=== PATIENT | male | born 1965 | race Caucasian/White ===

== ENCOUNTER 2016-06-17 18:12 | Inpatient (IN) | payer MEDICAID, OTHER ==
[~2016-06-17] VITALS: Ht 188 cm; Wt 90.3 kg
[2016-06-17] MEDS: Piperacillin/Tazobactam 4.5 GM in NS 110 ML IVPB SCH ×3 (04:00→20:00)
[~2016-06-17 18:12] MED LIST: CARDURA1 MG ORAL; IBUPROFEN600 MG ORAL; KEFLEX500 MG ORAL; LORTAB 10-5001 EACH ORAL; NKM; NORCO 10/3251 EA ORAL; NORCO 5-325 TA1 EACH ORAL; VIBRAMYCIN100 MG ORAL
[2016-06-17] MEDS ORDERED: VALIUM5 MG ORAL (18:20)
[2016-06-17 18:30] VITALS: BP 121/60
[2016-06-17 18:43] LABS: APPEARANCE,URINE CLEAR; KETONES,URINE NEGATIVE (NEGATIVE); LEUKOCYTE ESTERASE ,URINE NEGATIVE (NEGATIVE); NITRITE,URINE NEGATIVE (NEGATIVE); PH,URINE 8 (4.5-8.0); PROTEIN,URINE NEGATIVE (NEGATIVE); UROBILINOGEN,URINE NORMAL MG/DL (0.0-1.0)
[2016-06-17 18:53] LABS: TROPONIN I < 0.30 ng/mL (<=0.30)
[2016-06-17 18:54] LABS: ALANINE AMINOTRANSFERASE 12 U/L (3-41); ALBUMIN/GLOBULIN RATIO 0.9 (1.0-2.7); ANION GAP 15 (5-15); ASPARTATE AMINO TRANSFERASE 15 U/L (5-40); CALCIUM 7.4 mg/dL (8.6-10.2); CARBON DIOXIDE 25 mEQ/L (20-30); CHLORIDE 95 mEQ/L (98-107); GLOMERULAR FILTRATION RATE > 60 mL/min (>60); HEMOLYSIS 8; SODIUM 135 mEQ/L (135-145); TOTAL PROTEIN 5.7 g/dL (6.6-8.7)
[2016-06-17 19:04] LABS: CKMB < 1.5 ng/mL (< 6.7)
--- NOTE | 2016-06-17 19:15 | Emergency Room Report ---
History of Present Illness General Chief Complaint: Generalized Weakness Source: Patient, Family Member Present Illness HPI 50 YOM with "cancer everywhere" presents with generalized weakness, fever to 101 and chills at home after 1st chemo tx a couple days ago. Denies chest pain , SOB, cough, abd pain, urinary complaints. Was told by oncologist to expect this, go to ER for fever/chills. Allergies: Coded Allergies: No Known Allergies (Unverified , 01/23/13) Patient History Past Medical History: other - cancer, unknown primary Past Surgical History: none Pertinent Family History: none Social History: Denies: alcohol use, drug use, smoking Immunizations: UTD Reviewed Nursing Documentation: PMH: Agreed, PSxH: Agreed Nursing Documentation-PMH Hx Cardiac Problems: No Hx Hypertension: No Hx Pacemaker: No Hx Asthma: No Hx COPD: No Hx Diabetes: No Hx Cancer: Yes - pancreas Hx Gastrointestinal Problems: No Hx Dialysis: No Hx Neurological Problems: No Hx Cerebrovascular Accident: No Hx Seizures: No Review of Systems All Other Systems: negative except mentioned in HPI Physical Exam Vital Signs Date Time Temp Pulse Resp B/P Pulse Ox O2 Delivery O2 Flow Rate FiO2 06/17/16 18:14 97.5 76 18 144/75 98 06/17/16 18:30 Room Air Sp02 EP Interpretation: reviewed, normal General Appearance: normal inspection, well appearing, no apparent distress, alert, GCS 15, non-toxic, lethargic, other - Very weak, tired Eyes: bilateral eye EOMI, bilateral eye PERRL ENT: normal ENT inspection, hearing grossly normal, normal voice Neck: normal inspection, full range of motion, supple, no bony tend Respiratory: normal inspection, lungs clear, normal breath sounds, no respiratory distress, no retraction, no wheezing, other - Right chest wall with chemo port; no sign of infection Cardiovascular #1: regular rate, rhythm, no edema Gastrointestinal: normal inspection, normal bowel sounds, non tender, soft, no guarding, no hernia Genitourinary: no CVA tenderness Musculoskeletal: normal inspection, back normal, normal range of motion, Ines' s Sign negative Neurologic: normal inspection, alert, oriented x3, responsive, procurement accountant III-XII nml as tested, motor strength/tone normal, speech normal Psychiatric: normal inspection, judgement/insight normal, mood/affect normal Skin: normal inspection, normal color, no rash Lymphatic: normal inspection Medical Decision Making Diagnostic Impression: Primary Impression: Episode of generalized weakness ER Course Labs: No leuks or neutropenia. H&h stable. CXR and UA: no obvious source of infection Blood Cx pending Empiric Abx given LR maintenance fluid started Concern for early neutropenic fever. Endorsed to Dr Parada at 738pm for med/surg admission for PANEL. EKG Diagnostic Results Rate: normal Rhythm: NSR ST Segments: no acute changes ASA given to the pt in ED: No Rhythm Strip Diag. Results EP Interpretation: yes Rate: 69 Rhythm: NSR, no PVC's, no ectopy Chest X-Ray Diagnostic Results EP Interpretation: Yes Findings: no consolidation, no effusion, no pneumothorax, no acute cardiopulmonary disease Number of Views: 1 Last Vital Signs Date Time Temp Pulse Resp B/P Pulse Ox O2 Delivery O2 Flow Rate FiO2 06/17/16 18:30 98.0 70 29 121/60 95 Room Air Status: improved Disposition: ADMITTED INPATIENT Condition: Serious Referrals: NON PHYSICIAN (PCP) DANIELLA PHILIPPE M.D. Jun 17, 2016 19:15
[2016-06-17 19:31] LABS: EOSINOPHILS % (AUTO) 1.2 % (0.0-3.0); LYMPHOCYTES % (AUTO) 25.3 % (20.0-45.0); MEAN CORPUSCULAR HEMOGLOBIN 27.7 PG (27.0-31.0); MEAN CORPUSCULAR HGB CONC 31.7 G/DL (32.0-36.0); MEAN CORPUSCULAR VOLUME 87 FL (80-99); MEAN PLATELET VOLUME 7.6 FL (6.5-10.1); MONOCYTES % (AUTO) 3.1 % (1.0-10.0); NEUTROPHILS % (AUTO) 69.5 % (45.0-75.0); PLATELET COUNT 267 K/UL (150-450); RED BLOOD COUNT 4.78 M/UL (4.70-6.10); RED CELL DISTRIBUTION WIDTH 12.3 % (11.6-14.8); WHITE BLOOD COUNT 5.7 K/UL (4.8-10.8)
[2016-06-17] MEDS ORDERED: Piperacillin/Tazobactam 3.375 GM in D5W 110 ML IVPB STA (19:34)
[2016-06-17] MEDS ORDERED: Vancomycin 1.5gm/D5W 300ml 325 ML IVPB ONE (19:45)
[2016-06-17] MEDS ORDERED: Zosyn 3.375gm inj ONE (19:51)
[2016-06-17] MEDS: LR 1000ml 1,000 ML IV SCH (19:58)
[2016-06-17 20:53] VITALS: BP 127/73
--- NOTE | 2016-06-17 21:54 | History & Physical ---
History and Physical History & Physicial H&P dictated [id number] CRISTINA LIZ M.D. Jun 17, 2016 21:54
[2016-06-17] MEDS ORDERED: DiphenhydrAMINE 50mg/ml Inj IVP PRN (22:00)
[2016-06-18] VITALS: BP 123/58
[2016-06-18] MEDS: Norco 10mg/325mg tab ORAL PRN ×2 (00:08→09:13)
[2016-06-18] MEDS: LR 1000ml 1,000 ML IV SCH (00:45)
[2016-06-18 04:00] VITALS: BP 102/62
[2016-06-18] MEDS ORDERED: Piperacillin/Tazobactam 4.5 GM in D5W 110 ML IVPB SCH ×3 (04:00)
[2016-06-18] MEDS ORDERED: Piperacillin/Tazobactam 4.5 GM in NS 110 ML IVPB SCH (04:00)
[2016-06-18] MEDS ORDERED: Zosyn 4.5gm inj ONE (04:30)
--- NOTE | 2016-06-18 05:49 | History and Physical Report ---
DATE OF ADMISSION: 06/17/2016 NOTE: POOR AUDIO QUALITY HISTORY OF PRESENT ILLNESS: This is an unfortunate 50-year-old male with history of metastatic esophageal cancer, which started chemotherapy three days ago, was brought into emergency room because of generalized weakness, fever 101 degrees as well as chills that started after his chemotherapy . He states he is very weak and has difficulty when standing. The patient needs max assist to stand. He up to his chemotherapy via which was placed three weeks ago. His oncologist is Dr. Grigsby [facility]. The patient denies any chest pain, shortness of breath, or cough. He does report lower back pain. 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 PAST SURGICAL HISTORY: None. MEDICATIONS: in [employer]. ALLERGIES: Motrin. SOCIAL HISTORY: The patient smokes one and half pack per day. Does not drink alcohol. Smokes marijuana. REVIEW OF SYSTEMS: Twelve-point review of systems is negative except for pertinent positives as mentioned above. PHYSICAL EXAMINATION: VITAL SIGNS: In the emergency room, temperature 97.5 degrees, pulse 76, respiratory rate 18, blood pressure 144/75, and pulse oximetry 98% on room air. GENERAL: No acute distress. The patient is very weak and lethargic. He seems chronically ill . HEENT: Normocephalic/atraumatic. NECK: Supple. No JVD. LUNGS: Clear to auscultation bilaterally. No crackles, rhonchi, or rales. Decreased breath sounds bilaterally. CARDIOVASCULAR: Regular rate and rhythm. Normal S1, S2. ABDOMEN: Soft, nontender, and nondistended. EXTREMITIES: No clubbing, cyanosis, or edema. NEUROLOGIC: The patient is very weak and has difficulty standing or sitting up in his chair. He does need to monitor the max assist. He is alert, awake, and oriented to time, person, and place. LABORATORY AND DIAGNOSTIC DATA: EKG shows normal sinus rhythm. No ST changes. Chest x-ray shows no consolidation, pneumothorax, or pneumonia. CBC, white count of 5.7, hemoglobin 13.3, and platelet count 257,000. BMP, sodium 135, potassium 4, chloride 95, CO2 25, BUN 26, and creatinine 1. Calcium 7.4. Alkaline phosphatase 143. Albumin 2.8. Troponin is less than 0.30. UA is negative. ASSESSMENT AND PLAN: 1. Systemic inflammatory response syndrome criteria. Temperature 101 degrees and respiratory rate of 29 of unclear source. 2. Differential diagnosis include, Port infection with bacteremia. 3. Upper respiratory infection, secondary to chemotherapy. 4. Protein malnutrition. PLAN: 1. Admit the patient to med/surg. 2. Blood cultures pending. UA is negative. 3. chest x-ray. 4. We will start empiric antibiotics with cefepime and vancomycin. 5. IV fluids. 6. Resume home medications. Anuj Parada MD DR: Dontae JOB#: [id number] CC:
[2016-06-18 07:15] LABS: BASOPHILS % (AUTO) 1.1 % (0.0-2.0); EOSINOPHILS % (AUTO) 2.6 % (0.0-3.0); LYMPHOCYTES % (AUTO) 34.3 % (20.0-45.0); MEAN CORPUSCULAR HEMOGLOBIN 27.6 PG (27.0-31.0); MEAN CORPUSCULAR HGB CONC 31.9 G/DL (32.0-36.0); MEAN CORPUSCULAR VOLUME 86 FL (80-99); MEAN PLATELET VOLUME 7.4 FL (6.5-10.1); MONOCYTES % (AUTO) 2.3 % (1.0-10.0); NEUTROPHILS % (AUTO) 59.7 % (45.0-75.0); PLATELET COUNT 217 K/UL (150-450); RED BLOOD COUNT 4.32 M/UL (4.70-6.10); RED CELL DISTRIBUTION WIDTH 12.3 % (11.6-14.8); WHITE BLOOD COUNT 4.9 K/UL (4.8-10.8)
[2016-06-18 07:48] LABS: ALANINE AMINOTRANSFERASE 11 U/L (3-41); ALBUMIN/GLOBULIN RATIO 0.9 (1.0-2.7); ANION GAP 13 (5-15); ASPARTATE AMINO TRANSFERASE 12 U/L (5-40); CARBON DIOXIDE 25 mEQ/L (20-30); CHLORIDE 102 mEQ/L (98-107); CREATININE 0.7 mg/dL (0.7-1.2); GLOMERULAR FILTRATION RATE > 60 mL/min (>60); HEMOLYSIS 6; POTASSIUM 4.1 mEQ/L (3.4-4.9); SODIUM 140 mEQ/L (135-145); TOTAL PROTEIN 5.2 g/dL (6.6-8.7)
[2016-06-18 08:00] VITALS: BP 90/53
[2016-06-18] MEDS ORDERED: Vancomycin 1.5 GM in D5W 325 ML IVPB SCH (08:00)
[2016-06-18] MEDS ORDERED: Heparin 5000 units/ml inj SUBQ SCH (09:00)
[2016-06-18] MEDS ORDERED: Docusate 100mg tablet ORAL SCH (09:00)
--- NOTE | 2016-06-18 12:11 | Diagnostic Imaging Report ---
Indications: Shortness of breath Technique: Portable AP chest Findings: Comparison: None Linear density left lung base. Right lung clear. Heart size, pulmonary vasculature within normal limits. Left costophrenic angle mildly blunted, right sharp. Right chest wall Port-A-Cath. IMPRESSION: Subsegmental atelectasis versus scarring left lung base Mild left pleural effusion versus thickening Port-A-Cath
--- NOTE | 2016-06-19 07:56 | Discharge Summary ---
Discharge Summary Hospital Course Date of Admission Jun 17, 2016 at 19:25 Date of Discharge Jun 18, 2016 at 10:15 Admitting Diagnosis weakness JAMES Campuzano is a 50 year old male who was admitted on Jun 17, 2016 at 19:25 for Weakness Hospital Course dc summary #[id number] Discharge Condition Upon Discharge: stable Discharge Disposition Patient signed AMA Discharge Diagnoses: Discharge Instructions Discharge Instructions Special Instructions I have been assigned to complete a D/C Summary on this account. I was not involved in the patient management Mecca Washington NP (Vanchtein) Jun 19, 2016 07:56
--- NOTE | 2016-06-19 23:07 | Discharge Summary 2 SIG ---
DATE OF ADMISSION: 06/17/2016 DATE OF SIGNING AGAINST MEDICAL ADVISE : 06/18/2016 REASON FOR ADMISSION: 50-year-old male recently diagnosed with metastatic esophageal cancer, currently on chemotherapy, came to emergency room due to the generalized weakness, fever of 101 and chills. Fever, chills, generalized weakness started after chemotherapy. The patient reported increased weakness and difficulty with standing. The patient stated that he needs maximum assistance to stand. The patient has an oncologist, Dr. Grigsby at [facility]. The patient denied chest pain, shortness of breath and cough. He did report lower back pain. Esophageal cancer with metastasis to spine was diagnosed 2 1/2 months ago. Workup in the emergency room revealed fever, tachypnea, no leukocytosis. Negative troponin. Urinalysis negative. Chest x-ray revealed mid left pleural effusion versus thickening as well as the subsegmental atelectasis versus scarring at the left lung base. Evidence of Port-A-Cath. The patient was admitted to the hospital. ADMITTING DIAGNOSES: 1. Metastatic esophageal cancer with metastasis to the spine (currently on chemotherapy). 2. Systemic inflammatory response syndrome (tachypnea and fever). 3. Possible sepsis. 4. Possible Port-A-Cath infection with bacteremia. 5. Upper respiratory infection secondary to chemotherapy. 6. Protein-calorie malnutrition. HOSPITAL COURSE: The patient admitted to the hospital. The patient pancultured. Urinalysis was negative. The patient started on empiric antibiotics, vancomycin, and cefepime. The patient started on IV fluids. Home medications were resumed. The patient started on DVT prophylaxis. Bowel regimen instituted. Fever subsided with antibiotic. The patient wanted to go to [facility] to continue chemotherapy. The patient did not want to wait for the doctor to call back. The patient decided to sign against medical advice. at the bedside. Risks and consequences about signing against medical advice were explained to the patient and his . Nevertheless, they decided to sign this form and go to [facility] for chemotherapy. FINAL DIAGNOSES: 1. Metastatic esophageal cancer with metastasis to spine (currently on chemotherapy). 2. Systemic inflammatory response syndrome. 3. Possible sepsis. 4. Possible Port-A-Cath infection with bacteremia. 5. Upper respiratory infection secondary to chemotherapy. 6. Protein-calorie malnutrition. I have been assigned to dictate discharge summary on this account and I was not involved in the patient's management. Mecca ShellE.J. Noble HospitalMaxwell Beaver DR: Susana JOB#: [id number] CC: NACHO
--- NOTE | 2016-06-20 15:56 | Cardiology Report ---
APPROVED REPORT EKG Measurement Heart [id number] Normal sinus rhythm Rightward axis Borderline ECG
== END 2016-06-18 10:15 | disposition left against medical advice (07) | DRG 720 ==
LOC: EDBD 18:12 → EMR 18:25 → EDBEDREQ 19:00 → 3E 19:25 → EDBEDREQ 19:55
DX: A41.9 Sepsis, unspecified organism (principal); C15.9 Malignant neoplasm of esophagus, unspecified; E46 Unspecified protein-calorie malnutrition; T80.212A Local infection due to central venous catheter, initial encounter; C79.51 Secondary malignant neoplasm of bone; J06.9 Acute upper respiratory infection, unspecified; Z79.899 Other long term (current) drug therapy; Z88.6 Allergy status to analgesic agent; F17.200 Nicotine dependence, unspecified, uncomplicated
CPT/HCPCS: 36415; 71010; 80053; 81003; 82550; 82553; 83880; 84484; 85025; 87040; 93005

== ENCOUNTER 2017-02-03 23:19 | Inpatient (IN) | payer MEDICAID ==
[~2017-02-03] VITALS: Ht 183.5 cm; Wt 108.9 kg
[~2017-02-03 23:19] MED LIST changes: +VALIUM5 MG ORAL
[2017-02-03] MEDS ORDERED: MORPHINE 22 MG/1 ML IV (23:24)
[2017-02-03] MEDS ORDERED: NS 1000ml 2,900 ML IVLG ONE (23:45)
[2017-02-03] MEDS ORDERED: Morphine Sulfate 10mg/ml Inj IVP ONE (23:45)
--- NOTE | 2017-02-03 23:45 | Emergency Room Report ---
History of Present Illness General Chief Complaint: General Complaint Source: Patient Present Illness HPI Is a 51-year-old male with an unfortunate history esophageal cancer with widespread metastasis. He is in hospice at home with a morphine pump. He is altered mental status her last 3 days and become more agitated. Per family, he pulled out his morphine pump. He refuse to eat or drink. They called 911 to bring him in. Per EMS there were multiple family numbers to wanted to the hospital and some told to stay home. His son said he is the power of health care attorney but does have any before. They decided to bring the patient here for that source and weakness. Patient complained of generalized body pain. No nausea no vomiting. No fever or chills. Per his son, this occurred frequently and when this happened, they would send him to the hospital for admission and we will the hospice. When he is back to baseline mentally, they would put him back in hospice. His son felt that he is no longer able to be cared for at home. Allergies: Coded Allergies: IBUPROFEN (Verified Allergy, Unknown, 06/17/16) Patient History Past Medical History: see triage record, old chart reviewed Past Surgical History: other Pertinent Family History: none Social History: Denies: smoking - 9 month ago Immunizations: other Reviewed Nursing Documentation: PMH: Agreed, PSxH: Agreed Nursing Documentation-PMH Hx Cardiac Problems: No Hx Hypertension: No Hx Pacemaker: No Hx Asthma: No Hx COPD: No Hx Diabetes: No Hx Cancer: Yes - Esophageal Hx Gastrointestinal Problems: No Hx Dialysis: No Hx Neurological Problems: No Hx Cerebrovascular Accident: No Hx Seizures: No Review of Systems Constitutional: Reports: weakness Eye: Denies: eye pain, blurred vision ENT: Denies: ear pain, nose congestion, throat swelling Respiratory: Denies: cough, shortness of breath Cardiovascular: Denies: chest pain, palpitations Gastrointestinal: Denies: abdominal pain, diarrhea, nausea, vomiting Musculoskeletal: Denies: back pain, joint pain Skin: Denies: rash Neurological: Denies: headache, numbness Endocrine: Denies: increased thirst, increased urine Hematologic/Lymphatic: Denies: easy bruising All Other Systems: negative except mentioned in HPI Physical Exam Vital Signs Date Time Temp Pulse Resp B/P (MAP) Pulse Ox O2 Delivery O2 Flow Rate FiO2 02/03/17 23:15 99.7 122 24 133/99 95 Room Air vitals with tachycardia and low-grade fever Sp02 EP Interpretation: reviewed, normal General Appearance: no apparent distress, alert, Chronically Ill Head: normocephalic, atraumatic Eyes: bilateral eye PERRL, bilateral eye EOMI ENT: hearing grossly normal, normal pharynx Neck: full range of motion, supple, no meningismus Respiratory: chest non-tender, decreased breath sounds, rales Cardiovascular #1: regular rate, rhythm, no murmur Gastrointestinal: normal bowel sounds, non tender, no mass, no organomegaly, no bruit, non-distended Genitourinary: other - his penile gland is retracted. The foreskin is very thick and unable to see penis. Musculoskeletal: other - Generalize edema and lymphedema. Decubital ulcer to sacrum. Neurologic: alert, grossly normal Psychiatric: other - Agitated Skin: warm/dry Procedures Critical Care Time Critical Care Time Critical care is mandated in this patient who presented with sepsis and encephalopathy secondary to pneumonia. Patient require my urgent intervention to attenuate the risks of metabolic collapse which may lead to cardiovascular collapse and . Critical care time is 35 minutes excluding any reportable procedure. Critical care time included evaluation, multiple reevaluation, looking at old charts, interpreting laboratory and diagnostic data, discussing case with patient and family and consultants, and charting. Medical Decision Making Diagnostic Impression: Primary Impression: Sepsis Qualified Codes: A41.9 - Sepsis, unspecified organism Additional Impressions: Pneumonia Qualified Codes: J18.1 - Lobar pneumonia, unspecified organism Encephalopathy acute Metastasis from esophageal cancer Failure to thrive in adult Dehydration ER Course Pt presents sepsis and pneumonia. Unknown urine status because unable get a catheter in him. I put him on a condom catheter. Antibiotic started. Blood pressure better after IV fluid. Will admit versus transfer based on his insurance. I confirmed with family that he is a DO NOT RESUSCITATE. They will probably rescinded hospice until he is better. He may need placement in a correction. Family said that his primary care doctor's Burke [facility]. Because of this, I contacted Dr. Henry for admission. Laboratory Tests Test 02/03/17 22:36 White Blood Count 20.5 K/UL (4.8-10.8) H Red Blood Count 4.66 M/UL (4.70-6.10) L Hemoglobin 12.7 G/DL (14.2-18.0) L Hematocrit 38.3 % (42.0-52.0) L Mean Corpuscular Volume 82 FL (80-99) Mean Corpuscular Hemoglobin 27.2 PG (27.0-31.0) Mean Corpuscular Hemoglobin Concent 33.0 G/DL (32.0-36.0) Red Cell Distribution Width 14.6 % (11.6-14.8) Platelet Count 534 K/UL (150-450) H Mean Platelet Volume 6.0 FL (6.5-10.1) L Neutrophils (%) (Auto) % (45.0-75.0) Lymphocytes (%) (Auto) % (20.0-45.0) Monocytes (%) (Auto) % (1.0-10.0) Eosinophils (%) (Auto) % (0.0-3.0) Basophils (%) (Auto) % (0.0-2.0) Prothrombin Time 18.8 SEC (9.30-11.50) H Prothromb Time International Ratio 1.8 (0.9-1.1) H Activated Partial Thromboplast Time 33 SEC (23-33) Sodium Level 133 MMOL/L (136-145) L Potassium Level 5.9 MMOL/L (3.5-5.1) H Chloride Level 97 MMOL/L (98-107) L Carbon Dioxide Level 33 MMOL/L (21-32) H Anion Gap 3 mmol/L (5-15) L Blood Urea Nitrogen 25 mg/dL (7-18) H Creatinine 1.1 MG/DL (0.55-1.30) Estimat Glomerular Filtration Rate > 60 mL/min (>60) Glucose Level 130 MG/DL (74-106) H Lactic Acid Level Pending Calcium Level 8.3 MG/DL (8.5-10.1) L Total Bilirubin 0.4 MG/DL (0.2-1.0) Aspartate Amino Transf (AST/SGOT) 21 U/L (15-37) Alanine Aminotransferase (ALT/SGPT) 12 U/L (12-78) Alkaline Phosphatase 149 U/L (46-116) H Total Creatine Kinase 67 U/L (26-308) Creatine Kinase MB 0.8 NG/ML (0.0-3.6) Creatine Kinase MB Relative Index 1.1 Troponin I 0.025 ng/mL (0.000-0.056) Total Protein 6.7 G/DL (6.4-8.2) Albumin 1.3 G/DL (3.4-5.0) L Globulin 5.4 g/dL Albumin/Globulin Ratio 0.2 (1.0-2.7) L Lab Results Impression labs with high white count EKG Diagnostic Results Rate: tachycardiac Rhythm: NSR ST Segments: no acute changes Rhythm Strip Diag. Results Rhythm Strip Time: 00:26 EP Interpretation: yes Rate: 100 Rhythm: NSR, no PVC's, no ectopy Chest X-Ray Diagnostic Results Chest X-Ray Diagnostic Results : Chest X-Ray Ordered: Yes # of Views/Limited/Complete: 1 View Indication: Shortness of Breath EP Interpretation: Yes Interpretation: no effusion, no pneumothorax, other - Rt lower lobe infiltrate Impression: Other - infiltrate RLL Electronically Signed by: Noe Washington MD Last Vital Signs Date Time Temp Pulse Resp B/P (MAP) Pulse Ox O2 Delivery O2 Flow Rate FiO2 02/03/17 23:15 99.7 122 24 133/99 95 Room Air Status: improved Disposition: ADMITTED INPATIENT Condition: Serious Referrals: [facility] (PCP) NOE WASHINGTON M.D. Feb 03, 2017 23:45
[2017-02-03 23:58] LABS: MEAN CORPUSCULAR HEMOGLOBIN 27.2 PG (27.0-31.0); MEAN CORPUSCULAR VOLUME 82 FL (80-99); PLATELET COUNT 534 K/UL (150-450); RED BLOOD COUNT 4.66 M/UL (4.70-6.10); RED CELL DISTRIBUTION WIDTH 14.6 % (11.6-14.8); WHITE BLOOD COUNT 20.5 K/UL (4.8-10.8)
[2017-02-04 00:06] LABS: ANION GAP 3 mmol/L (5-15); CALCIUM 8.3 MG/DL (8.5-10.1); CARBON DIOXIDE 33 MMOL/L (21-32); CHLORIDE 97 MMOL/L (98-107); CREATININE 1.1 MG/DL (0.55-1.30); GLOMERULAR FILTRATION RATE > 60 mL/min (>60); POTASSIUM 5.9 MMOL/L (3.5-5.1); SODIUM 133 MMOL/L (136-145)
[2017-02-04] MEDS ORDERED: LORazepam Inj 2mg/ml 1ml IV ONE ×4 (00:15→14:40)
[2017-02-04] MEDS ORDERED: Cefepime HCl 1 GM in D5W 55 ML IVPB ONE (00:15)
[2017-02-04 00:19] LABS: INR 1.8 (0.9-1.1); PROTHROMBIN TIME 18.8 SEC (9.30-11.50)
[2017-02-04] MEDS ORDERED: Cefepime 1gm vial ONE (00:19)
[2017-02-04 00:20] LABS: ALANINE AMINOTRANSFERASE 12 U/L (12-78); ALBUMIN/GLOBULIN RATIO 0.2 (1.0-2.7); ASPARTATE AMINO TRANSFERASE 21 U/L (15-37); CKMB 0.8 NG/ML (0.0-3.6); TOTAL PROTEIN 6.7 G/DL (6.4-8.2)
[2017-02-04 00:34] LABS: REFLEX LACTIC ACID YES OR NO YES
[2017-02-04] MEDS ORDERED: Haloperidol 5mg/ml Inj IM ONE (01:45)
[2017-02-04 02:50] VITALS: BP 111/56
[2017-02-04 04:00] VITALS: BP 112/66
[2017-02-04] MEDS ORDERED: LORazepam Inj 2mg/ml 1ml IV PRN (07:00)
[2017-02-04] MEDS ORDERED: LORazepam 1mg tab ORAL PRN ×2 (07:00→07:15)
[2017-02-04 08:00] VITALS: BP 103/66
[2017-02-04] MEDS: Pantoprazole Inj IVP SCH (09:00)
[2017-02-04] MEDS: Piperacillin/Tazobactam 3.375 GM in D5W 55 ML IVPB SCH ×4 (09:00→22:41)
[2017-02-04] MEDS ORDERED: Vancomycin 1250mg/D5W 250ml IVPB SCH (09:00)
[2017-02-04] MEDS: Heparin 5000 units/ml inj SUBQ SCH ×2 (09:00→20:06)
[2017-02-04] MEDS: Morphine Sulfate 2mg/ml Inj IM PRN (10:35)
--- NOTE | 2017-02-04 10:45 | History and Physical Report ---
DATE OF ADMISSION: 02/04/2017 CHIEF COMPLAINT: Intractable pain. HISTORY OF PRESENT ILLNESS: The patient is an unfortunate 51-year-old male with history of metastatic esophageal cancer. He is apparently on hospice and was on morphine drip. According to the family members, he pulled out the IV and he could no longer be administered pain medications. He had severe pain and agitation, and presented to the emergency room. On evaluation there, he had an elevated white count of 20,000. He had multiple pressure ulcers on his buttocks and sacrum. He has been started on IV hydration and antibiotics. He is now admitted for further evaluation and care. PAST MEDICAL HISTORY: As above. PAST SURGICAL HISTORY: Unknown. CURRENT MEDICATIONS: Reconciled and reviewed. ALLERGIES: Ibuprofen. FAMILY HISTORY: Noncontributory. SOCIAL HISTORY: There is no known history of tobacco, ethanol, or drugs. REVIEW OF SYSTEMS: From the patient is unobtainable. PHYSICAL EXAMINATION: VITAL SIGNS: Temperature was 101, pulse 58, respirations 18, and blood pressure 90/53. GENERAL: The patient is a chronically ill-appearing male in no apparent distress. He is agitated and confused. NECK: Supple. HEART: Regular rate and rhythm. LUNGS: Clear. CHEST: There is a catheter in the right chest wall. ABDOMEN: Soft, nontender, nondistended. EXTREMITIES: Without clubbing or cyanosis. SKIN: The patient has multiple pressure ulcers. LABORATORY DATA: White count was 20, hemoglobin 12, hematocrit 38, and platelets 534,000. Sodium 138, potassium 5.0, chloride 97, bicarbonate 33, BUN 25, and creatinine is 1.1. INR is 1.8. ASSESSMENT: This is an unfortunate male admitted with complaints of sepsis and encephalopathy. He has history of metastatic esophageal cancer. The case was discussed with the patient's family who state that they do want to continue hospice, but he now requires too much care at home. PLAN: IV fluids. IV antibiotics. Follow up cultures. We will ask pediatric social worker on placement at a [facility] facility and continuation of the patient's hospice. The patient will remain DNR. Segundo Henry M.D. DR: Clarissa JOB#: [id number] CC:
--- NOTE | 2017-02-04 11:05 | Diagnostic Imaging Report ---
Indication: Shortness of breath Technique: One view of the chest Comparison: 06/17/2016 Findings: Interim removal of previously demonstrated right-sided chest port catheter. There is new finding of interstitial disease throughout the right lung. Atelectasis is seen in the left midlung. Is equivocal slight blunting of the right costophrenic sulcus Impression: Interstitial disease throughout the right lung, new since 06/17/2016. Nonspecific as regards etiology Cannot rule out small right-sided pleural effusion Left midlung atelectasis Interim port catheter removal
[2017-02-04 12:00] VITALS: BP 107/78
--- NOTE | 2017-02-04 13:26 | Wound Care Consultation ---
Wound Assessment Wound Assessment #1: Wound Number: 1 Wound Present on Admission: Yes New Wound: No Status Change of Wound: No Wound Location Body Site Modif: mid Wound Location Body Site: other - Sacrococcygeal extending to left and right buttocks Wound Type: pressure ulcer Juan Test: Does not Juan Pressure Ulcer Stage: Unstageable Wound Thickness: Full Thickness Wound Length: 15.5 Wound Width: 12.5 Wound Depth: utd Percent of Wound [place]/Red: 10 Percent of Wound Bed Yellow/Wh: 60 Percent of Wound Black/Brown: 20 Percent of Wound Purple/Maroon: 10 Wound Drainage Description: Serosanguineous Wound Drainage Amount: Moderate Wound Drainage Odor: None/Absent Tissue Surrounding Wound: Macerated Wound General Appearance: Reddened - yellow, maroon, brown, Draining Wound Assessment #2: Wound Number: 2 Wound Present on Admission: Yes New Wound: No Status Change of Wound: No Wound Location Body Site Modif: left, lower, lateral Wound Location Body Site: leg Wound Type: pressure ulcer Juan Test: Does not Juan Pressure Ulcer Stage: Deep Tissue Injury Wound Thickness: Full Thickness Wound Length: 11.5 Wound Width: 2.0 Wound Depth: utd Percent of Wound Purple/Maroon: 100 Wound Drainage Amount: None Wound Drainage Odor: None/Absent Tissue Surrounding Wound: Erythemic Wound General Appearance: Reddened - purple Wound Assessment #3: Wound Number: 3 Wound Present on Admission: Yes New Wound: No Status Change of Wound: No Wound Location Body Site Modif: right, plantar Wound Location Body Site: metatarsal head - between 1st and 2nd Wound Type: pressure ulcer Juan Test: Does not Juan Pressure Ulcer Stage: II - fluid filled blister Wound Thickness: Partial Thickness Wound Length: 5.0 Wound Width: 3.5 Wound Drainage Amount: None Wound Drainage Odor: None/Absent Tissue Surrounding Wound: Intact Wound Assessment #4: Wound Number: 4 Wound Present on Admission: Yes New Wound: No Status Change of Wound: No Wound Location Body Site: back Wound Type: pressure ulcer Pressure Ulcer Stage: Deep Tissue Injury - scattered Wound Thickness: Full Thickness Percent of Wound Purple/Maroon: 100 Wound Drainage Amount: None Wound Drainage Odor: None/Absent Tissue Surrounding Wound: Intact Wound General Appearance: Reddened - purple, maroon Wound Assessment #5: Wound Number: 5 Wound Present on Admission: Yes New Wound: No Status Change of Wound: No Wound Location Body Site Modif: left, lateral Wound Location Body Site: malleolus/ankle Wound Type: pressure ulcer Juan Test: Does not Juan Pressure Ulcer Stage: Deep Tissue Injury Wound Thickness: Full Thickness Wound Length: 2.5 Wound Width: 2.0 Wound Depth: utd Percent of Wound Purple/Maroon: 100 Wound Drainage Amount: None Wound Drainage Odor: None/Absent Tissue Surrounding Wound: Intact Wound General Appearance: Reddened - maroom Wound Assessment #6: Wound Number: 6 Wound Present on Admission: Yes New Wound: No Status Change of Wound: No Wound Location Body Site Modif: left Wound Location Body Site: ischial tuberosity Wound Type: pressure ulcer Juan Test: Does not Juan Pressure Ulcer Stage: Deep Tissue Injury Wound Thickness: Full Thickness Wound Length: 3.5 Wound Width: 3.0 Wound Depth: utd Percent of Wound Purple/Maroon: 100 Wound Drainage Amount: None Wound Drainage Odor: None/Absent Tissue Surrounding Wound: Erythemic Wound General Appearance: Reddened - purple Wound Assessment #7: Wound Number: 7 Wound Present on Admission: Yes New Wound: No Status Change of Wound: No Wound Location Body Site Modif: right Wound Location Body Site: ischial tuberosity Wound Type: pressure ulcer Juan Test: Does not Juan Pressure Ulcer Stage: Deep Tissue Injury Wound Thickness: Full Thickness Wound Length: 3.0 Wound Width: 2.5 Wound Depth: utd Percent of Wound Purple/Maroon: 100 Wound Drainage Amount: None Wound Drainage Odor: None/Absent Tissue Surrounding Wound: Erythemic Wound General Appearance: Reddened - purple Wound Comment #1 Sacrococcygeal unstageable pressure ulcer extending to left and right buttocks #2 Right lateral leg DTI pressure ulcer #3 Right plantar between 1st and 2nd metatarsal head fluid filed blister #4 Scattered DTI on back area #5 Left lateral malleolus DTI pressure ulcer #6 Left ischial tuberosity DTI pressure ulcer #7 Right ischial tuberosity DTI pressure ulcer Recommendation -Local wound care per protocol -Low air loss mattress -Optimize nutrition -Keep clean and dry -Turn and reposition -Offload both heels -Heel protector on both heels -Assess and f/u accordingly foe any changes ALIDA ARSHAD RN Feb 04, 2017 13:26
[2017-02-04] MEDS: LORazepam Inj 2mg/ml 1ml IV PRN ×2 (15:42→20:00)
[2017-02-04 16:00] VITALS: BP 93/64
--- NOTE | 2017-02-04 18:28 | Cardiology Report ---
APPROVED REPORT EKG Measurement Heart [id number] Sinus tachycardia Rightward axis Low voltage QRS Septal infarct, age undetermined Abnormal ECG
[2017-02-04] MEDS: Vancomycin 1250mg/D5W 250ml IVPB SCH (18:43)
[2017-02-04 21:00] VITALS: BP 123/57
[2017-02-05 00:24] VITALS: BP 117/57
[2017-02-05] MEDS: Vancomycin 1250mg/D5W 250ml IVPB SCH (01:08)
[2017-02-05] MEDS: Piperacillin/Tazobactam 3.375 GM in D5W 55 ML IVPB SCH ×2 (05:34→15:12)
[2017-02-05] MEDS: Pantoprazole Inj IVP SCH (08:20)
[2017-02-05 09:00] VITALS: BP 123/61
[2017-02-05] MEDS: Heparin 5000 units/ml inj SUBQ SCH (09:40)
[2017-02-05 11:33] LABS: CREATININE 1.1 MG/DL (0.55-1.30); GLOMERULAR FILTRATION RATE > 60 mL/min (>60)
[2017-02-05 12:00] VITALS: BP 130/55
[2017-02-05] MEDS: Morphine Sulfate 2mg/ml Inj IM PRN (15:13)
[2017-02-05 16:00] VITALS: BP 89/53
--- NOTE | 2017-02-05 17:30 | Discharge Summary ---
DATE OF ADMISSION: 02/04/2017 DATE OF DISCHARGE: 02/05/2017 CHIEF COMPLAINT: Intractable pain, history of metastatic esophageal cancer. HISTORY: The patient is an unfortunate male that was admitted from home. He was on hospice care and apparently pulled out his IV. He no longer received pain medications. He apparently pulled out a Pleurx catheter. Because his pain cannot be controlled, he was admitted. The patient had an intravenous placed, was started back on IV morphine. A replacement of the Pleurx catheter that the patient pulled out was ordered. But family refused and stated that they wanted the patient discharged to have it done at [facility] where he normally receives most of his care. He was referred to inpatient hospice at [facility] who declined the patient. On discharge, the patient's pain was better controlled. He will be discharged home. He has been asked to follow up with [facility] for replacement of the Pleurx catheter. DISCHARGE MEDICATIONS: Please see discharge medications list for discharge medications. DIET: Regular diet as tolerated. Segundo Henry M.D. DR: IRAM JOB#: [id number] CC:
[2017-02-05 19:47] VITALS: BP 110/59
[2017-02-05] MEDS ORDERED: Tubing IV Secondary IV ONE (21:24)
[2017-02-05] MEDS ORDERED: 1/2 NS 1000ml IV ONE (21:24)
[2017-02-06] MEDS ORDERED: Vancomycin 1gm in D5W 275ml IVPB SCH ×2
== END 2017-02-05 21:25 | disposition hospice, home (50) | DRG 861 ==
LOC: EDBD 23:19 → EMR 23:25 → 4E 02-04 00:17 → EDBEDREQ 02-04 00:55 → 4E 02-04 05:55
DX: G89.3 Neoplasm related pain (acute) (chronic) (principal); G93.40 Encephalopathy, unspecified; L89.150 Pressure ulcer of sacral region, unstageable; L89.310 Pressure ulcer of right buttock, unstageable; L89.320 Pressure ulcer of left buttock, unstageable; C15.9 Malignant neoplasm of esophagus, unspecified; C79.9 Secondary malignant neoplasm of unspecified site; L89.520 Pressure ulcer of left ankle, unstageable; Z66 Do not resuscitate; Z88.6 Allergy status to analgesic agent; L89.890 Pressure ulcer of other site, unstageable
CPT/HCPCS: 36415; 71010; 80053; 80202; 82550; 82553; 82565; 83605; 84484; 84520; 85025; 85610; 85730; 87040; 93005; 99285

== ENCOUNTER 2017-02-10 03:18 | Emergency (ER) | payer MEDICAID ==
[~2017-02-10] VITALS: Ht 185.4 cm; Wt 97.5 kg
[~2017-02-10 03:18] MED LIST changes: +MORPHINE 22 MG/1 ML IV
[2017-02-10 03:24] VITALS: BP 84/49
[2017-02-10 04:30] VITALS: BP 94/71
--- NOTE | 2017-02-10 08:29 | Emergency Room Report ---
History of Present Illness General Chief Complaint: Pain Source: EMS Present Illness HPI Patient is a 51-year-old male who presented after increased difficulty breathing. Patient reportedly had been vomiting blood. Patient had prior history of esophageal cancer is in hospice. Patient states that he had a dose of pain medication. Brought in by EMS. Allergies: Coded Allergies: IBUPROFEN (Verified Allergy, Unknown, 06/17/16) Patient History Reviewed Nursing Documentation: PMH: Agreed, PSxH: Agreed Nursing Documentation-PMH Hx Cardiac Problems: No Hx Hypertension: No Hx Pacemaker: No Hx Asthma: No Hx COPD: No Hx Diabetes: No Hx Cancer: Yes - METASTATIC ESOPHAGEAL CA Hx Gastrointestinal Problems: No Hx Dialysis: No Hx Neurological Problems: No Hx Cerebrovascular Accident: No Hx Seizures: No Review of Systems All Other Systems: negative except mentioned in HPI Physical Exam Vital Signs Date Time Temp Pulse Resp B/P (MAP) Pulse Ox O2 Delivery O2 Flow Rate FiO2 02/10/17 03:21 97.9 113 20 84/49 98 Room Air General Appearance: alert, GCS 15, Chronically Ill Head: normocephalic, atraumatic ENT: hearing grossly normal, normal voice Neck: full range of motion, supple Respiratory: speaking full sentences Cardiovascular #1: tachycardia Musculoskeletal: no calf tenderness Neurologic: alert, oriented x3, responsive, normal gait Psychiatric: normal inspection, judgement/insight normal, mood/affect normal Skin: other - skin ulcer Lymphatic: other - lymphedema Medical Decision Making Diagnostic Impression: Primary Impression: Anxiety ER Course Patient presented for anxiety. Patient had prior history of cancer. The patient states he does not want any treatment in emergency department at this time. He states he would rather at home. He states he has adequate doses of his pain medications currently on hospice. Patient became concerned do to some difficulty breathing. Patient was transported home via [facility]. Last Vital Signs Date Time Temp Pulse Resp B/P (MAP) Pulse Ox O2 Delivery O2 Flow Rate FiO2 02/10/17 04:30 97.9 109 18 94/71 98 Room Air Status: unchanged Disposition: HOME, SELF-CARE Condition: Critical Referrals: NOT CHOSEN IPA/,REFERRING (PCP) Patient Instructions: [facility]-Life Care Heraclio Leyva Feb 10, 2017 08:29
== END 2017-02-10 04:30 | disposition home or self-care (01) ==
LOC: EDBD 03:18 → EMR 03:46
DX: F41.9 Anxiety disorder, unspecified (principal); Z85.01 Personal history of malignant neoplasm of esophagus
CPT/HCPCS: 99282